=== PATIENT | female | born 1965 | race Caucasian/White ===

== ENCOUNTER 2022-08-19 22:47 | Emergency (ER) | payer OTHER ==
[2022-08-19 23:13] VITALS: BP 125/89; PULSE 71; RESP 18; TEMP 97.5; BMI 21.9
== END 2022-08-20 01:06 | disposition home or self-care (01) ==
LOC: JER 22:47
DX: H91.91 Unspecified hearing loss, right ear (principal)
CPT/HCPCS: 99283-25